=== PATIENT | female | born 1960 | race Two or more races ===

== ENCOUNTER 2025-04-14 04:22 | Emergency (ER) | payer MEDICAID, SELFPAY ==
[2025-04-14 04:22] VITALS: BP 166/72; PULSE 100; RESP 18; TEMP 36.5; O2SAT 96; BMI 44.1
--- NOTE | 2025-04-14 04:25 | EKG_ITS ---
[facility] Test Date: 2025-04-14 Pat Name: EILEEN MORENO Department: Room: - Gender: Female [employer]: : 1960 Requested By: Romain Cheung Order Number: [id number] Reading MD: Romain Cheung Measurements Intervals [place] Rate: 86 P: 20 NC: 160 QRS: -37 QRSD: 70 T: 40 QT: 330 QTc: 396 Interpretive Statements SINUS RHYTHM LOW QRS VOLTAGE IN PRECORDIAL LEADS [QRS DEFLECTION < 1.0 mV IN CHEST LEADS] ANTERIOR MYOCARDIAL INFARCTION , PROBABLY OLD [40+ ms Q WAVE AND/OR ST/T ABNORMALITY IN V3/V4] INFERIOR MYOCARDIAL INFARCTION , PROBABLY OLD [40+ ms Q WAVE AND/OR ST/T ABNORMALITY IN II/aVF] Compared to ECG 08/25/2022 14:14:52 No significant changes /store/S0/[id number]/[id number].pdf
--- NOTE | 2025-04-14 04:55 | XR_ITS ---
Examination: PA chest single view TECHNIQUE: Upright PA chest single view Date and time: April 14, 2025 0505 hours INDICATIONS: Chest pain shortness of breath beginning 2 weeks ago. FINDINGS: Normal heart size. Mild prominence pulmonary vasculature. No pneumonia or pulmonary edema IMPRESSION: Mild prominence pulmonary vasculature
--- NOTE | 2025-04-14 04:55 | PD.EDRME ---
Rapid Medical Screening Exam [facility] Arrival date/time: 04/14/25 04:22 64F with history of HTN, DM and asthma presents to ED with 2 weeks of CP and SOB that got worse today. Patient denies URI symptoms. Chief Complaint: Chest Pain Vital signs: Vital Signs Temperature 97.7 F 04/14/25 04:22 Pulse Rate 100 04/14/25 04:22 Respiratory Rate 18 04/14/25 04:22 Blood Pressure 166/72 H 04/14/25 04:22 Pulse Oximetry (%) 96 04/14/25 04:22 Oxygen Delivery Method Room Air 04/14/25 04:22
[2025-04-14 06:17] LABS: Basophils # (Auto) 0.0 Thou/mm3 (0.0-0.2); Basophils % (Auto) 0 % (0-2.5); Eosinophils # (Auto) 0.2 Thou/mm3 (0.0-0.5); Eosinophils % (Auto) 2 % (0-10); Hematocrit 39.4 % (36.0-46.0); Hemoglobin 12.2 g/dL (12.0-16.0); Immature Granulocytes Auto 0.02 Thou/mm3 (0.00-0.00); Lymphocytes # (Auto) 2.3 Thou/mm3 (1.0-4.8); Lymphocytes % (Auto) 23 % (10-50); Mean Corpuscular HGB Conc 31.0 g/dl (31.0-37.0); Mean Corpuscular Hemoglobin 27.1 pg (25.0-35.0); Mean Corpuscular Volume 87 fL (80-100); Monocytes # (Auto) 0.9 Thou/mm3 (0.0-0.8); Monocytes % (Auto) 9 % (0-12); Neutrophils # (Auto) 6.9 Thou/mm3 (1.8-7.7); Neutrophils % (Auto) 67 % (37-80); Nucleated Red Blood Cell # 0.00 Thou/mm3 (0.00-0.00); Nucleated Red Blood Cell % 0 /100 WBC (0); Platelet Count 258 Thou/mm3 (140-440); RDW Standard Deviation 49.6 fL (36.4-46.3); Red Blood Count 4.51 Miln/mm3 (4.00-5.20); White Blood Count 10.3 Thou/mm3 (3.6-11.0)
[2025-04-14 06:35] LABS: Alanine Aminotransferase 31 U/L (10-49); Albumin, Serum 4.3 gm/dL (3.4-4.8); Albumin/Globulin Ratio 1.5 (1.2-2.2); Alkaline Phosphatase 105 U/L (46-116); Anion Gap 13 (7-16); Aspartate Amino Transferase 23 U/L (0-34); B-Type Natriuretic Peptide < 20 pg/mL (0-100); BUN/Creatinine Ratio 19 Ratio (12-20); Bilirubin,Total 0.4 mg/dL (0.3-1.2); Blood Urea Nitrogen 15 mg/dL (9-23); Calcium 10.2 mg/dL (8.3-10.6); Calcium (Corrected) 10.2 mg/dL (8.5-10.1); Carbon Dioxide 25.1 mMol/L (20.0-31.0); Chloride 102 mMol/L (98-107); Creatinine (Component) 0.8 mg/dL (0.6-1.3); Estimated Creatinine Clearance 90.3 mL/min (>60); Globulin 2.9 gm/dL (2.3-3.5); Glucose 163 mg/dL (74-106); Osmolality,Calculated 284 (275-295); Potassium 4.8 mMol/L (3.4-5.1); Sodium 140 mMol/L (136-145); Total Protein 7.2 gm/dL (5.7-8.2); Troponin I < 0.002 ng/mL (0.0-0.045); eGFR > 60 See Note
[2025-04-14 07:38] LABS: INR 0.9 (0.9-1.3); Partial Thromboplastin Time 26.8 Seconds (22.0-36.0); Prothrombin Time 10.2 Seconds (9.0-12.2)
--- NOTE | 2025-04-14 09:12 | PD.EDCHEST ---
ED Chest Pain RME/HPI General Chief Complaint: Chest Pain Stated Complaint: CHEST PAIN, FEELS SOB X2 WEEKS Arrival date/time: 04/14/25 04:22 RME / HPI RME / HPI narrative: 04/14/25 04:22 64F with history of HTN, DM and asthma presents to ED with 2 weeks of CP and SOB that got worse today. Patient denies URI symptoms. DR. ABDI MAIN ED EVALUATION 64 year old female with history of hypertension, diabetes, asthma presents to the ED for evaluation of chest pain beginning at 02:30 this morning. Described as a tightness burning sensation that is located to the center of chest with radiation to her left shoulder. Accompanied by facial tingling sensation. States she believed her symptoms were due to low sugar and upon checking noted it to be 88. States she took two sips of Pepsi and oatmeal. Patient additionally reports she was started on antibiotics for a UTI and ear infection 5 days ago which she is still taking. Denies fevers, chills, sweats. Related Data Home Medications ?Medication ?Instructions ?Recorded ?Confirmed albuterol sulfate 90 mcg/actuation 2 puff inhalation Q6HR PRN 09/29/15 09/19/21 aerosol inhaler (ProAir HFA) WHEEZING #0 inhalations atorvastatin 20 mg tablet (Lipitor) 20 mg PO HS #0 tabs 09/29/15 09/19/21 furosemide 40 mg tablet (Lasix) 40 mg PO BID #0 tabs 09/29/15 09/19/21 loratadine 10 mg tablet (Claritin) 10 mg PO QDAY #0 tabs 09/29/15 09/19/21 oxybutynin chloride 5 mg tablet 5 mg PO BID #0 tabs 09/29/15 09/19/21 sitagliptin phosphate 100 mg 100 mg PO QDAY #0 tabs 09/29/15 09/19/21 tablet (Januvia) amlodipine 10 mg tablet 10 mg PO QDAY 02/15/20 09/19/21 aspirin 81 mg chewable tablet 81 mg PO QDAY 02/15/20 09/19/21 budesonide-formoterol HFA 160 2 puff inhalation BID 02/15/20 09/19/21 mcg-4.5 mcg/actuation aerosol inhaler (Symbicort) cholecalciferol (vitamin D3) 1,250 50,000 unit PO QWEEK 02/15/20 09/19/21 mcg (50,000 unit) capsule docusate sodium 250 mg capsule 250 mg PO BID 02/15/20 09/19/21 empagliflozin 25 mg tablet 25 mg PO QDAY 02/15/20 09/19/21 (Jardiance) glimepiride 4 mg tablet 4 mg PO BID 02/15/20 09/19/21 hydroxyzine HCl 25 mg tablet 25 mg PO BID PRN Allergy Symptoms 02/15/20 09/19/21 losartan 100 mg tablet (Cozaar) 100 mg PO QDAY 02/15/20 09/19/21 metformin 1,000 mg tablet 1,000 mg PO BID 02/15/20 09/19/21 tiotropium bromide 2.5 2 puff inhalation QDAY 02/15/20 09/19/21 mcg/actuation mist for inhalation (Spiriva Respimat) Previous Rx's ?Medication ?Instructions ?Recorded potassium chloride 20 mEq 40 meq (2 x 20 mEq) PO BID #10 tabs 02/15/20 tablet,extended release ondansetron 4 mg disintegrating 4 mg PO Q8H #30 tabs 05/17/20 tablet albuterol sulfate 90 mcg/actuation 2 puff inhalation QID PRN 09/08/21 aerosol inhaler (ProAir HFA) shortness of breath or wheezing #8.5 grams albuterol sulfate 90 mcg/actuation 2 puff inhalation Q6H PRN 07/02/22 aerosol inhaler (Ventolin HFA) shortness of breath or wheezing #8.5 grams azithromycin 500 mg tablet See Rx Instructions PO .COMPLEX #6 07/02/22 tabs promethazine-DM 6.25 mg-15 mg/5 mL 5 ml PO Q6H PRN cough #473 mL 07/02/22 oral syrup ibuprofen 600 mg tablet 600 mg PO Q6H PRN fever or pain 10/14/22 #30 tabs levalbuterol tartrate 45 2 inh inhalation Q4H PRN shortness 10/14/22 mcg/actuation aerosol inhaler of breath or wheezing #15 grams (Xopenex HFA) promethazine-DM 6.25 mg-15 mg/5 mL 5 ml PO Q6H PRN cough #118 mL 10/14/22 oral syrup Allergies Allergy/AdvReac Type Severity Reaction Status Date / Time cefonicid Allergy Intermediate Rash Verified 09/19/21 13:18 doxycycline Allergy Intermediate Rash Verified 09/19/21 13:18 hydrocodone Allergy Intermediate RASH Verified 09/19/21 13:18 levofloxacin Allergy Intermediate RASH Verified 09/19/21 13:18 sulfamethoxazole (From Allergy Intermediate Rash Verified 09/19/21 13:18 Bactrim) tolterodine (From Detrol) Allergy Intermediate Rash Verified 09/19/21 13:18 trimethoprim (From Bactrim) Allergy Intermediate Rash Verified 09/19/21 13:18 carvedilol Allergy Mild Itching Verified 09/19/21 13:18 ciprofloxacin Allergy Mild SOB Verified 09/19/21 13:18 latex Allergy Mild Nausea Verified 09/19/21 13:18 nitrofurantoin Allergy Mild Itching Verified 09/19/21 13:18 spironolactone Allergy Unknown Rash Verified 09/19/21 13:18 ibuprofen AdvReac Intermediate Abdominal Verified 09/19/21 13:18 Pain Review of Systems Review of Systems Systems Reviewed: All systems reviewed, normal except as documented Past Medical History Past Medical History CARDIAC: Positive Hypercholesterolemia and Hypertension RESPIRATORY: Positive Respiratory Disorders, Asthma and Pneumonia (04/11/25) GASTROINTESTINAL: Positive Gastrointestinal Disorders and Obesity REPRODUCTIVE: Positive Previous Pregnancies MUSCULOSKELETAL: Positive Musculoskeletal Disorders and Arthritis ENT: Positive History of ENT Problems and Ear Infection (L ear) ENDOCRINE: Positive Endocrine Disorders and Diabetes Mellitus Type 2 PSYCHO/SOCIAL: Positive Anxiety Surgical History SURGICAL: Positive Hysterectomy (partial) and Section; Negative Cardiac Surgery or Endocrine Surgery Social History SMOKING STATUS: Never smoker SECOND HAND EXPOSURE: No ED Exam Narrative Physical exam: GENERAL APPEARANCE: alert and oriented x 4, well-developed, obese, no acute distress HEENT: Normocephalic, atraumatic; pupils equal, round, reactive to light; EOMI; mucous membranes pink, moist; oropharynx clear NECK: Supple LUNGS: CTABL; no wheezes, no rales, no rhonchi HEART: Regular rate, regular rhythm; normal S1, S2; no murmurs ABDOMEN: non distended; normal BS; soft, no tenderness, no guarding, no rebound; no masses, no organomegaly, no hernia BACK: no CVA tenderness EXTREMITIES: atraumatic; no edema NEUROLOGIC: awake; alert and oriented x4; cranial nerves II-XII grossly intact; no focal sensory or motor deficits PSYCHIATRIC: appropriate mood and affect SKIN: warm, dry, normal color; no rashes Course Quality Measures none Orders Category Date Time Status Bedside COVID-19 Antigen Test NOW Care 04/14/25 11:48 Completed Bedside Influenza A&B Antigen Test NOW Care 04/14/25 11:48 Completed EKG (ED ONLY) *Do not use* NOW Care 04/14/25 04:25 Completed EKG (ED Only) Stat Exams 04/14/25 04:25 Draft XR chest 1V portable Stat Exams 04/14/25 04:55 Completed B-Type Natriuretic Peptide Stat Lab 04/14/25 05:04 Completed CBC Stat Lab 04/14/25 05:04 Completed Comprehensive Metabolic Panel Stat Lab 04/14/25 05:04 Completed D-Dimer Stat Lab 04/14/25 11:00 Completed Partial Thromboplastin Time Stat Lab 04/14/25 05:04 Completed Prothrombin Time with INR Stat Lab 04/14/25 05:04 Completed Troponin I Stat Lab 04/14/25 05:04 Completed Troponin I Stat Lab 04/14/25 11:00 Completed UA, C/S IF [Urinalysis, C/S if Indicated] Stat Lab 04/14/25 10:25 Completed Vital Signs Vital signs: Vital Signs Temperature 97.7 F 04/14/25 04:22 Pulse Rate 100 04/14/25 04:22 Respiratory Rate 18 04/14/25 04:22 Blood Pressure 166/72 H 04/14/25 04:22 Pulse Oximetry (%) 96 04/14/25 04:22 Oxygen Delivery Method Room Air 04/14/25 04:22 Pulse ox is 96% on room air which is adequate. Chest Pain MDM Narrative MDM Narrative:: Thelma Smith am scribing for and in the presence of Dr. Abdi. Patient data External records reviewed:: [facility] previous records (I reviewed ED visit on 10/14/2022 ) Clinical information provided by:: patient Social determinants that could affect healthcare access:: none Patient has the following chronic illnesses:: hypertension, diabetes, asthma How is presenting disease/condition affected by chronic disease/condition?: exacerbated by Evaluation data The following diagnostics were reviewed and interpreted by me:: lab results, radiology exam(s) and EKG tracing(s) (04/14/2025 @ 04:30 AM. NSR, rate 86, no acute ischemic changes. ) Lab and/or radiology exams considered but not ordered:: None Interpretation Summary: Ordering Physician: Romain Cheung PA-C Date of Service: 04/14/25 Procedure(s): XR chest 1V portable Accession Number(s): [id number] cc: Rambo Al MD; Romain Cheung PA-C; Kassandra Asif PA-C~ Examination: PA chest single view TECHNIQUE: Upright PA chest single view Date and time: April 14, 2025 0505 hours INDICATIONS: Chest pain shortness of breath beginning 2 weeks ago. FINDINGS: Normal heart size. Mild prominence pulmonary vasculature. No pneumonia or pulmonary edema IMPRESSION: Mild prominence pulmonary vasculature Dictated By: Rambo Al MD Signed By: <Electronically signed by Rambo Al MD in OV> 04/14/25 0934 Medications / Prescriptions Medications or Prescriptions considered but not ordered:: None Medication administrations:: See above Consultations Consultation(s) initiated? (list below): No Diagnosis Chest Pain Differential Diagnosis: stable angina, unstable angina pectoris, atypical chest pain, st elevation myocardial infarction, costochondritis, chest pain and biliary colic Most likely diagnosis given after review of the tests above:: Dyspnea Admission Indicated Admission indicated?: not indicated Admission Request Was there a request for admission?: No Disposition Plan Disposition Plan: Discharge Discharge Attestation Discharge Attestation: The patient and all family members were given an opportunity to ask questions and understood the discharge instructions. Discharge instructions specifically effects, indications for sooner follow up or return to the emergency department, and the expected course of current diagnosis. Patient condition: Stable Discharge Plan Plan Patient Disposition: HOME (Self Care) Prescriptions/Referrals Prescriptions/Med Rec: No Action furosemide [Lasix] 40 MG tablet 40 mg PO BID Qty: 0 atorvastatin [Lipitor] 20 MG tablet 20 mg PO HS Qty: 0 albuterol sulfate [ProAir HFA] 8.5 GM HFA aerosol inhaler 2 puff Inhalation Q6HR PRN (Reason: WHEEZING) Qty: 0 oxybutynin chloride 5 MG tablet 5 mg PO BID Qty: 0 loratadine [Claritin] 10 MG tablet 10 mg PO QDAY Qty: 0 Januvia 100 MG tablet 100 mg PO QDAY Qty: 0 metformin 1,000 mg Tablet 1,000 mg PO BID aspirin 81 mg Tablet,Chewable 81 mg PO QDAY losartan [Cozaar] 100 mg Tablet 100 mg PO QDAY budesonide-formoterol [Symbicort] 160-4.5 mcg/actuation Hfa Aerosol Inhaler 2 puff INHALATION BID Spiriva Respimat 2.5 mcg/actuation Mist 2 puff INHALATION QDAY amlodipine 10 mg tablet 10 mg PO QDAY glimepiride 4 mg tablet 4 mg PO BID Patient Comments: TAKE 1 TABLET BY MOUTH TWICE A DAY hydroxyzine HCl 25 mg tablet 25 mg PO BID PRN (Reason: Allergy Symptoms) docusate sodium 250 mg capsule 250 mg PO BID Patient Comments: TAKE ONE CAPSULE BY MOUTH TWICE A DAY cholecalciferol (vitamin D3) 1,250 mcg (50,000 unit) capsule 50,000 unit PO QWEEK Patient Comments: TAKE 1 CAPSULE BY MOUTH WEEKLY Rx Instructions: SATURDAY. Jardiance 25 mg tablet 25 mg PO QDAY potassium chloride 20 mEq tablet extended release 40 meq PO BID Qty: 10 0RF ondansetron 4 mg tablet,disintegrating 4 mg PO Q8H Qty: 30 0RF albuterol sulfate [ProAir HFA] 90 mcg/actuation HFA aerosol inhaler 2 puff inhalation QID PRN (Reason: shortness of breath or wheezing) Qty: 8.5 0RF promethazine-DM 6.25-15 mg/5 mL syrup 5 ml PO Q6H PRN (Reason: cough) Qty: 473 0RF albuterol sulfate [Ventolin HFA] 90 mcg/actuation HFA aerosol inhaler 2 puff inhalation Q6H PRN (Reason: shortness of breath or wheezing) Qty: 8.5 0RF azithromycin 500 mg tablet See Rx Instructions .ROUTE .COMPLEX Qty: 6 0RF Rx Instructions: take 500 mg today (day 1), then 250 mg for 4 days (days 2-5) levalbuterol tartrate [Xopenex HFA] 45 mcg/actuation HFA aerosol inhaler 2 inh inhalation Q4H PRN (Reason: shortness of breath or wheezing) Qty: 15 0RF ibuprofen 600 mg tablet 600 mg PO Q6H PRN (Reason: fever or pain) Qty: 30 0RF promethazine-DM 6.25-15 mg/5 mL syrup 5 ml PO Q6H PRN (Reason: cough) Qty: 118 0RF Referrals: Kassandra Asif PA-C [Primary Care Provider] - In 1 week Problem List Clinical Impression: Dyspnea Patient/Caregiver Discharge Instructions Education Materials: ED Shortness of Breath (Dyspnea) Print Language: Azerbaijani Stand Alone Forms: [employer] Award Info., Patient Portal Info Letter
[2025-04-14 10:42] VITALS: BP 165/68; PULSE 72; RESP 18; TEMP 36.5; O2SAT 95
[2025-04-14 10:47] LABS: Collection Type, Urine Clean Catch
[2025-04-14 11:05] LABS: Bilirubin,Urine Negative (Negative); Blood,Urine Negative (Negative); Clarity,Urine Clear (Clear/Hazy); Color,Urine Lt-Yellow (Lt Yel-Yel); Culture Indicated,Urine Not Indicated; Glucose, Urine Negative (Negative); Ketones,Urine Negative (Negative); Leukocyte Esterase,Urine Positive (Negative); Nitrite,Urine Negative (Negative); PH,Urine 6.0 (5.0-7.0); Protein,Urine Negative (Neg - Trace); RBC,Urine 3 /hpf (0-3); Specific Gravity,Urine 1.016 (1.001-1.035); Squamous Epithelial Cell,Urine 3 /hpf (0-5); Urobilinogen,Urine Negative mg/dL (0.0-1.0); WBC,Urine 5 /hpf (0-5)
[2025-04-14 11:46] LABS: Troponin I < 0.002 ng/mL (0.0-0.045)
[2025-04-14 12:28] LABS: D-Dimer 266 ng/mL (<600)
[2025-04-14 14:00] VITALS: BP 161/72; PULSE 78; RESP 18; TEMP 36.9; O2SAT 99
== END 2025-04-14 14:00 | disposition home or self-care (01) ==
PROVIDERS: Physician Assistant; Emergency Provider Emergency Medicine; PCP Physician Assistant
DX: R06.00 Dyspnea, unspecified (principal); I10 Essential (primary) hypertension; E11.9 Type 2 diabetes mellitus without complications; J45.909 Unspecified asthma, uncomplicated
CPT/HCPCS: 36415; 71045; 80053; 81001; 83880; 84484; 85025; 85379; 85610; 85730; 87400; 87811; 93005; 99283

== ENCOUNTER 2025-05-06 00:50 | Emergency (ER) | payer MEDICAID, SELFPAY ==
[2025-05-06 00:51] VITALS: BMI 44.1
[2025-05-06 01:24] VITALS: BP 145/78; PULSE 88; RESP 20; TEMP 36.7; O2SAT 93
--- NOTE | 2025-05-06 01:48 | XR_ITS ---
Examination: PA lateral chest 2 views Technique: Upright PA lateral chest 2 views Date and time: May 06, 2025, 0150 hrs., Comparison 04/14/2025 Indications: Coughing chest pain with inspiration beginning 4 days ago. Findings: Heart size. Minor prominence pulmonary vasculature. Accentuation basilar bronchovascular markings. Moderate thoracic spondylosis Impression: Basilar bronchitis pattern
--- NOTE | 2025-05-06 01:49 | PD.EDRME ---
Rapid Medical Screening Exam E Arrival date/time: 05/06/25 00:50 64-year-old female with a history of asthma reports with complaints of shortness of breath x 2 days Chief Complaint: Flu Like Symptoms Time Seen by Provider: 05/06/25 01:11 Vital signs: Vital Signs Temperature 98.0 F 05/06/25 01:24 Pulse Rate 88 05/06/25 01:24 Respiratory Rate 20 05/06/25 01:24 Blood Pressure 145/78 H 05/06/25 01:24 Pulse Oximetry (%) 93 L 05/06/25 01:24 Oxygen Delivery Method Room Air 05/06/25 01:24
[2025-05-06 02:19] VITALS: PULSE 77; RESP 20; O2SAT 98
[2025-05-06] MEDS: ALBUTEROL/IPRATROPIUM (Duoneb) RT SOL 3 ML NEBU INH (02:19)
--- NOTE | 2025-05-06 03:06 | EDNOTE_ITS ---
ED SOB =RME/HPI General Chief Complaint: Flu Like Symptoms Stated Complaint: PAIN ON INSPIRATION COUGH Time Seen by Provider: 05/06/25 01:11 Arrival date/time: 05/06/25 00:50 64F with history of HTN, DM and asthma presents to ED with several days of SOB and lung pain. Limitations: no limitations RME / HPI RME / HPI Narrative: 05/06/25 00:50 64-year-old female with a history of asthma reports with complaints of shortness of breath x 2 days Related Data Home Medications ?Medication ?Instructions ?Recorded ?Confirmed albuterol sulfate 90 mcg/actuation 2 puff inhalation Q 6HR PRN 09/29/15 09/19/21 aerosol inhaler (ProAir HFA) WHEEZING #0 inhalations atorvastatin 20 mg tablet (Lipitor) 20 mg PO HS #0 tab s 09/29/15 09/19/21 furosemide 40 mg tablet (Lasix) 40 mg PO BID #0 tabs 0 09/29/15 09/19/21 loratadine 10 mg tablet (Claritin) 10 mg PO QDAY #0 ta bs 09/29/15 09/19/21 oxybutynin chloride 5 mg tablet 5 mg PO BID #0 tabs 09/19/21 sitagliptin phosphate 100 mg 100 mg PO QDAY #0 tabs 09/19/21 tablet (Januvia) amlodipine 10 mg tablet 10 mg PO QDAY 02/15/2009/19 aspirin 81 mg chewable tablet 81 mg PO QDAY 02/15/20 0 09/19/21 budesonide-formoterol HFA 160 2 puff inhalation BID 09/19/21 mcg-4.5 mcg/actuation aerosol inhaler (Symbicort) cholecalciferol (vitamin D3) 1,250 50,000 unit PO QWEE K 02/15/20 09/19/21 mcg (50,000 unit) capsule docusate sodium 250 mg capsule 250 mg PO BID 02/15/20 09/19/21 empagliflozin 25 mg tablet 25 mg PO QDAY 02/15/2004/02 (Jardiance) glimepiride 4 mg tablet 4 mg PO BID 02/15/20 2 hydroxyzine HCl 25 mg tablet 25 mg PO BID PRN Allergy Symptoms 02/15/20 09/19/21 losartan 100 mg tablet (Cozaar) 100 mg PO QDAY 0 09/19/21 metformin 1,000 mg tablet 1,000 mg PO BID 02/15/2004/02 tiotropium bromide 2.5 2 puff inhalation QDAY 02/1409/19/21 mcg/actuation mist for inhalation (Spiriva Respimat) Previous Rx's ?Medication ?Instructions ?Recorded potassium chloride 20 mEq 40 meq (2 x 20 mEq) PO BID # 10 tabs 02/15/20 tablet,extended release ondansetron 4 mg disintegrating 4 mg PO Q8H #30 tabs 1 tablet albuterol sulfate 90 mcg/actuation 2 puff inhalation Q ID PRN 09/08/21 aerosol inhaler (ProAir HFA) shortness of breath or wh eezing #8.5 grams albuterol sulfate 90 mcg/actuation 2 puff inhalation Q 6H PRN 07/02/22 aerosol inhaler (Ventolin HFA) shortness of breath or wheezing #8.5 grams azithromycin 500 mg tablet See Rx Instructions PO .COM PLEX #6 07/02/22 tabs promethazine-DM 6.25 mg-15 mg/5 mL 5 ml PO Q6H PRN cou gh #473 mL 07/02/22 oral syrup ibuprofen 600 mg tablet 600 mg PO Q6H PRN fever or p ain 10/14/22 #30 tabs levalbuterol tartrate 45 2 inh inhalation Q4H PRN yeni rtness 10/14/22 mcg/actuation aerosol inhaler of breath or wheezing #1 5 grams (Xopenex HFA) promethazine-DM 6.25 mg-15 mg/5 mL 5 ml PO Q6H PRN cou gh #118 mL 10/14/22 oral syrup albuterol sulfate 90 mcg/actuation 2 puff inhalation Q 6H PRN 05/06/25 aerosol inhaler (Ventolin HFA) shortness of breath or wheezing #8.5 grams prednisone 20 mg tablet 20 mg PO BID 3 days #6 tabs 05/06/25 Allergies Allergy/AdvReac Type Severity Reaction Status Date / Time cefonicid Allergy Intermediate Rash Verified 05/06/25 00:54 doxycycline Allergy Intermediate Rash Verified 05/06/25 00:54 hydrocodone Allergy Intermediate RASH Verified 05/06/25 00:54 levofloxacin Allergy Intermediate RASH Verified 05/06/25 00:54 sulfamethoxazole (From Allergy Intermediate Rash Verified 05/06/25 00:54 Bactrim) tolterodine (From Detrol) Allergy Intermediate Rash Verified 05/06/25 00:54 trimethoprim (From Bactrim) Allergy Intermediate Rash Verified 05/06/25 00:54 carvedilol Allergy Mild Itching Verified 05/06/25 00:54 ciprofloxacin Allergy Mild SOB Verified 05/06/25 00:54 latex Allergy Mild Nausea Verified 05/06/25 00:54 nitrofurantoin Allergy Mild Itching Verified 05/06/25 00:54 spironolactone Allergy Unknown Rash Verified 05/06/25 00:54 ibuprofen AdvReac Intermediate Abdominal Verified 05/06/25 00:54 Pain Review of Systems Review of Systems Systems Reviewed: All systems reviewed, normal except as documented Cardiovascular Cardiovascular: Reports dyspnea Respiratory Respiratory: Reports as per HPI and Reports dyspnea Past Medical History Past Medical History NEUROLOGIC: Negative Neurological Disorders CARDIAC: Positive Hypercholesterolemia and Hypertension; Negative Cardiac Disorders or Congestive Heart Failure RESPIRATORY: Positive Asthma and Pneumonia (04/11/25); Negative Chronic Obstructive Pulmonary Disease (COPD), Emphysema or Tuberculosis GASTROINTESTINAL: Positive Gastrointestinal Disorders and Obesity GENITOURINARY: Negative Genitourinary Disorders or Renal Disease REPRODUCTIVE: Positive Previous Pregnancies MUSCULOSKELETAL: Positive Musculoskeletal Disorders and Arthritis ENT: Positive Ear Infection (L ear) ENDOCRINE: Positive Endocrine Disorders and Diabetes Mellitus Type 2; Negative Diabetes Mellitus Type 1 HEMATOLOGIC: Negative Blood Disorders or Sickle Cell Disease PSYCHO/SOCIAL: Positive Anxiety OTHER HISTORY: Negative Blood Transfusions, Anesthesia Reactions or Cancer Surgical History SURGICAL: Positive Hysterectomy (partial) and Section; Negative Cardiac Surgery or Endocrine Surgery Social History SMOKING STATUS: Never smoker SECOND HAND EXPOSURE: No ED Exam General Limitations: Present no limitations General appearance: Present alert and in no apparent distress Head Head exam: Present atraumatic Neck Neck exam: Present normal inspection, full ROM and trachea midline Chest Chest inspection: Present normal inspection and symmetric chest wall rise Respiratory Respiratory exam: Present normal lung sounds bilaterally Neurological Exam Neurological exam: Present alert and oriented X3 Psychiatric Psychiatric exam: Present normal affect and normal mood Skin Skin exam: Present warm, dry, intact and normal color Course Quality Measures none Orders Category Date Time Status Bedside COVID-19 Antigen Test NOW Care 05/06/25 03:16 Completed Bedside Influenza A&B Antigen Test NOW Care 05/06/25 03:16 Completed XR chest 2V Stat Exams 05/06/25 01:48 Taken CBC Stat Lab 05/06/25 03:16 Completed CMP [Comprehensive Metabolic Panel] Stat Lab 05/06/25 03:16 Completed D-Dimer Stat Lab 05/06/25 03:16 Completed Troponin I Stat Lab 05/06/25 03:16 Completed Albuterol/Ipratr Rt Rachel [Duoneb Rt Rachel] Med 05/06/25 01:48 Discontinued 3 ml INH X1 ONE predniSONE Med 05/06/25 03:05 Discontinued 40 mg PO X1 ONE Vital Signs Vital signs: Vital Signs Temperature 98.0 F 05/06/25 01:24 Pulse Rate 88 05/06/25 01:24 Respiratory Rate 20 05/06/25 01:24 Blood Pressure 145/78 H 05/06/25 01:24 Pulse Oximetry (%) 93 L 05/06/25 01:24 Oxygen Delivery Method Room Air 05/06/25 01:24 O2 at 93% on RA Shortness of Breath / Dyspnea MDM Narrative MDM Narrative:: 64F with history of HTN, DM and asthma presents to ED with several days of SOB and lung pain. Physical exam reveals no wheezing in lungs. Patient is afebrile, calm, and alert. Patient states breathing tx ordered by E provider did not relieve symptoms. No leukocytosis. CMP unremarkable. Normal trop. Normal D-dimer. Wet CXR unremarkable pending official report. Steroid improved symptoms. Swabs neg. Patient data External records reviewed:: [facility] previous records Clinical information provided by:: patient Social determinants that could affect healthcare access:: none Patient has the following chronic illnesses:: HTN, DM and asthma How is presenting disease/condition affected by chronic disease/condition?: exacerbated by Evaluation data The following diagnostics were reviewed and interpreted by me:: lab results and radiology exam(s) Lab and/or radiology exams considered but not ordered:: ordered Interpretation Summary: above Medications / Prescriptions Medications or Prescriptions considered but not ordered:: ordered Medication administrations:: Medication Administration History Discontinued Medications Albuterol/Ipratropium (Albuterol/Ipratropium (Duoneb) Rt Rachel 3 Ml Nebu) 3 ml INH X1 ONE Stop: 05/06/25 01:49 Last Admin: 05/06/25 02:19 Dose: 3 ml Documented By: PATTI Prednisone (Prednisone 20 Mg Tablet) 40 mg PO X1 ONE Stop: 05/06/25 03:06 Last Admin: 05/06/25 03:40 Dose: 40 mg Documented By: YUDY above Consultations Consultation(s) initiated? (list below): No Diagnosis Shortness of Breath Differential Diagnosis: acute exacerbation of chronic obstructive airways disease, congestive heart failure, community acquired pneumonia, asthma with exacerbation and pulmonary embolism Most likely diagnosis given after review of the tests above:: asthma exacerbation Admission Indicated Admission indicated?: not indicated Admission Request Was there a request for admission?: No Disposition Plan Disposition Plan: Discharge Discharge Attestation Discharge Attestation: The patient and all family members were given an opportunity to ask questions and understood the discharge instructions. Discharge instructions specifically effects, indications for sooner follow up or return to the emergency department, and the expected course of current diagnosis. Patient condition: Stable Discharge Plan Plan Patient Disposition: HOME (Self Care) Prescriptions/Referrals Prescriptions/Med Rec: New prednisone 20 mg tablet 20 mg PO BID 3 Days Qty: 6 0RF albuterol sulfate [Ventolin HFA] 90 mcg/actuation HFA aerosol inhaler 2 puff inhalation Q6H PRN (Reason: shortness of breath or wheezing) Qty: 8.5 0RF No Action furosemide [Lasix] 40 MG tablet 40 mg PO BID Qty: 0 atorvastatin [Lipitor] 20 MG tablet 20 mg PO HS Qty: 0 albuterol sulfate [ProAir HFA] 8.5 GM HFA aerosol inhaler 2 puff Inhalation Q6HR PRN (Reason: WHEEZING) Qty: 0 oxybutynin chloride 5 MG tablet 5 mg PO BID Qty: 0 loratadine [Claritin] 10 MG tablet 10 mg PO QDAY Qty: 0 Januvia 100 MG tablet 100 mg PO QDAY Qty: 0 metformin 1,000 mg Tablet 1,000 mg PO BID aspirin 81 mg Tablet,Chewable 81 mg PO QDAY losartan [Cozaar] 100 mg Tablet 100 mg PO QDAY budesonide-formoterol [Symbicort] 160-4.5 mcg/actuation Hfa Aerosol Inhaler 2 puff INHALATION BID Spiriva Respimat 2.5 mcg/actuation Mist 2 puff INHALATION QDAY amlodipine 10 mg tablet 10 mg PO QDAY glimepiride 4 mg tablet 4 mg PO BID Patient Comments: TAKE 1 TABLET BY MOUTH TWICE A DAY hydroxyzine HCl 25 mg tablet 25 mg PO BID PRN (Reason: Allergy Symptoms) docusate sodium 250 mg capsule 250 mg PO BID Patient Comments: TAKE ONE CAPSULE BY MOUTH TWICE A DAY cholecalciferol (vitamin D3) 1,250 mcg (50,000 unit) capsule 50,000 unit PO QWEEK Patient Comments: TAKE 1 CAPSULE BY MOUTH WEEKLY Rx Instructions: SATURDAY. Jardiance 25 mg tablet 25 mg PO QDAY potassium chloride 20 mEq tablet extended release 40 meq PO BID Qty: 10 0RF ondansetron 4 mg tablet,disintegrating 4 mg PO Q8H Qty: 30 0RF albuterol sulfate [ProAir HFA] 90 mcg/actuation HFA aerosol inhaler 2 puff inhalation QID PRN (Reason: shortness of breath or wheezing) Qty: 8.5 0RF promethazine-DM 6.25-15 mg/5 mL syrup 5 ml PO Q6H PRN (Reason: cough) Qty: 473 0RF albuterol sulfate [Ventolin HFA] 90 mcg/actuation HFA aerosol inhaler 2 puff inhalation Q6H PRN (Reason: shortness of breath or wheezing) Qty: 8.5 0RF azithromycin 500 mg tablet See Rx Instructions .ROUTE .COMPLEX Qty: 6 0RF Rx Instructions: take 500 mg today (day 1), then 250 mg for 4 days (days 2-5) levalbuterol tartrate [Xopenex HFA] 45 mcg/actuation HFA aerosol inhaler 2 inh inhalation Q4H PRN (Reason: shortness of breath or wheezing) Qty: 15 0RF ibuprofen 600 mg tablet 600 mg PO Q6H PRN (Reason: fever or pain) Qty: 30 0RF promethazine-DM 6.25-15 mg/5 mL syrup 5 ml PO Q6H PRN (Reason: cough) Qty: 118 0RF Referrals: Kassandra Asif PA-C [Primary Care Provider, Family Practice] - In 1 week Problem List Clinical Impression: Asthma exacerbation Patient/Caregiver Discharge Instructions Additional Instructions: Please follow-up with PCP within 24-48 hours and return immediately if symptoms worsen. Watch sugars as steroids can increase BS. Print Language: Maltese Stand Alone Forms: Work/School Release, Patient Portal Info Letter PA/SWISS TYPE SCREW MACHINE OPERATOR Supervising Physician PA/SWISS TYPE SCREW MACHINE OPERATOR Supervising Physician: Wyatt
[2025-05-06 03:24] LABS: Basophils # (Auto) 0.1 Thou/mm3 (0.0-0.2); Basophils % (Auto) 1 % (0-2.5); Eosinophils # (Auto) 0.1 Thou/mm3 (0.0-0.5); Eosinophils % (Auto) 1 % (0-10); Hematocrit 38.8 % (36.0-46.0); Hemoglobin 12.3 g/dL (12.0-16.0); Immature Granulocytes Auto 0.03 Thou/mm3 (0.00-0.00); Lymphocytes # (Auto) 2.8 Thou/mm3 (1.0-4.8); Lymphocytes % (Auto) 25 % (10-50); Mean Corpuscular HGB Conc 31.7 g/dl (31.0-37.0); Mean Corpuscular Hemoglobin 27.0 pg (25.0-35.0); Mean Corpuscular Volume 85 fL (80-100); Monocytes # (Auto) 0.8 Thou/mm3 (0.0-0.8); Monocytes % (Auto) 7 % (0-12); Neutrophils # (Auto) 7.2 Thou/mm3 (1.8-7.7); Neutrophils % (Auto) 65 % (37-80); Nucleated Red Blood Cell # 0.00 Thou/mm3 (0.00-0.00); Nucleated Red Blood Cell % 0 /100 WBC (0); Platelet Count 243 Thou/mm3 (140-440); RDW Standard Deviation 48.3 fL (36.4-46.3); Red Blood Count 4.56 Miln/mm3 (4.00-5.20); White Blood Count 11.1 Thou/mm3 (3.6-11.0)
[2025-05-06 03:43] LABS: Alanine Aminotransferase 29 U/L (10-49); Albumin, Serum 4.5 gm/dL (3.4-4.8); Albumin/Globulin Ratio 1.6 (1.2-2.2); Alkaline Phosphatase 95 U/L (46-116); Anion Gap 10 (7-16); Aspartate Amino Transferase 20 U/L (0-34); BUN/Creatinine Ratio 25 Ratio (12-20); Bilirubin,Total 0.5 mg/dL (0.3-1.2); Blood Urea Nitrogen 20 mg/dL (9-23); Calcium 9.7 mg/dL (8.3-10.6); Calcium (Corrected) 9.7 mg/dL (8.5-10.1); Carbon Dioxide 25.6 mMol/L (20.0-31.0); Chloride 105 mMol/L (98-107); Creatinine (Component) 0.8 mg/dL (0.6-1.3); Estimated Creatinine Clearance 90.3 mL/min (>60); Globulin 2.9 gm/dL (2.3-3.5); Glucose 155 mg/dL (74-106); Osmolality,Calculated 286 (275-295); Potassium 4.6 mMol/L (3.4-5.1); Sodium 141 mMol/L (136-145); Total Protein 7.4 gm/dL (5.7-8.2); Troponin I < 0.002 ng/mL (0.0-0.045); eGFR > 60 See Note
[2025-05-06 04:02] LABS: D-Dimer < 250 ng/mL (<600)
== END 2025-05-06 05:00 | disposition home or self-care (01) ==
PROVIDERS: Physician Assistant; Emergency Provider Emergency Medicine; PCP Physician Assistant
DX: J45.901 Unspecified asthma with (acute) exacerbation (principal)
CPT/HCPCS: 36415; 71046; 80053; 84484; 85025; 85379; 87400; 87811; 94640; 99283; A9270; J7512

== ENCOUNTER 2025-07-15 17:52 | Emergency (ER) | payer MEDICAID, SELFPAY ==
[2025-07-15 17:52] VITALS: BMI 44.4
[2025-07-15 17:59] VITALS: BP 189/80; PULSE 88; RESP 20; TEMP 36.6; O2SAT 96
--- NOTE | 2025-07-15 18:06 | PD.EDADULT ---
ED General RME/HPI General Chief complaint: Neuro Symptoms/Deficit Stated complaint: numbness to mouth Time Seen by Provider: 07/15/25 18:04 Arrival date/time: 07/15/25 17:52 CC: Tingling around the mouth HPI onset approximately 130, multiple episodes lasting between 15 and 30 seconds. No other focal deficits denies fever chills chest pain shortness of breath or difficulty breathing. Currently at the time of the exam the symptoms are absent. Related Data Home Medications ?Medication ?Instructions ?Recorded ?Confirmed albuterol sulfate 90 mcg/actuation 2 puff inhalation Q6HR PRN 09/29/15 09/19/21 aerosol inhaler (ProAir HFA) WHEEZING #0 inhalations atorvastatin 20 mg tablet (Lipitor) 20 mg PO HS #0 tabs 09/29/15 09/19/21 furosemide 40 mg tablet (Lasix) 40 mg PO BID #0 tabs 09/29/15 09/19/21 loratadine 10 mg tablet (Claritin) 10 mg PO QDAY #0 tabs 09/29/15 09/19/21 oxybutynin chloride 5 mg tablet 5 mg PO BID #0 tabs 09/29/15 09/19/21 sitagliptin phosphate 100 mg 100 mg PO QDAY #0 tabs 09/29/15 09/19/21 tablet (Januvia) amlodipine 10 mg tablet 10 mg PO QDAY 02/15/20 09/19/21 aspirin 81 mg chewable tablet 81 mg PO QDAY 02/15/20 09/19/21 budesonide-formoterol HFA 160 2 puff inhalation BID 02/15/20 09/19/21 mcg-4.5 mcg/actuation aerosol inhaler (Symbicort) cholecalciferol (vitamin D3) 1,250 50,000 unit PO QWEEK 02/15/20 09/19/21 mcg (50,000 unit) capsule docusate sodium 250 mg capsule 250 mg PO BID 02/15/20 09/19/21 empagliflozin 25 mg tablet 25 mg PO QDAY 02/15/20 09/19/21 (Jardiance) glimepiride 4 mg tablet 4 mg PO BID 02/15/20 09/19/21 hydroxyzine HCl 25 mg tablet 25 mg PO BID PRN Allergy Symptoms 02/15/20 09/19/21 losartan 100 mg tablet (Cozaar) 100 mg PO QDAY 02/15/20 09/19/21 metformin 1,000 mg tablet 1,000 mg PO BID 02/15/20 09/19/21 tiotropium bromide 2.5 2 puff inhalation QDAY 02/15/20 09/19/21 mcg/actuation mist for inhalation (Spiriva Respimat) Previous Rx's ?Medication ?Instructions ?Recorded potassium chloride 20 mEq 40 meq (2 x 20 mEq) PO BID #10 tabs 02/15/20 tablet,extended release ondansetron 4 mg disintegrating 4 mg PO Q8H #30 tabs 05/17/20 tablet albuterol sulfate 90 mcg/actuation 2 puff inhalation QID PRN 09/08/21 aerosol inhaler (ProAir HFA) shortness of breath or wheezing #8.5 grams albuterol sulfate 90 mcg/actuation 2 puff inhalation Q6H PRN 07/02/22 aerosol inhaler (Ventolin HFA) shortness of breath or wheezing #8.5 grams azithromycin 500 mg tablet See Rx Instructions PO .COMPLEX #6 07/02/22 tabs promethazine-DM 6.25 mg-15 mg/5 mL 5 ml PO Q6H PRN cough #473 mL 07/02/22 oral syrup ibuprofen 600 mg tablet 600 mg PO Q6H PRN fever or pain 10/14/22 #30 tabs levalbuterol tartrate 45 2 inh inhalation Q4H PRN shortness 10/14/22 mcg/actuation aerosol inhaler of breath or wheezing #15 grams (Xopenex HFA) promethazine-DM 6.25 mg-15 mg/5 mL 5 ml PO Q6H PRN cough #118 mL 10/14/22 oral syrup albuterol sulfate 90 mcg/actuation 2 puff inhalation Q6H PRN 05/06/25 aerosol inhaler (Ventolin HFA) shortness of breath or wheezing #8.5 grams Allergies Allergy/AdvReac Type Severity Reaction Status Date / Time cefonicid Allergy Intermediate Rash Verified 07/15/25 17:55 doxycycline Allergy Intermediate Rash Verified 07/15/25 17:55 hydrocodone Allergy Intermediate RASH Verified 07/15/25 17:55 levofloxacin Allergy Intermediate RASH Verified 07/15/25 17:55 sulfamethoxazole (From Allergy Intermediate Rash Verified 07/15/25 17:55 Bactrim) tolterodine (From Detrol) Allergy Intermediate Rash Verified 07/15/25 17:55 trimethoprim (From Bactrim) Allergy Intermediate Rash Verified 07/15/25 17:55 carvedilol Allergy Mild Itching Verified 07/15/25 17:55 ciprofloxacin Allergy Mild SOB Verified 07/15/25 17:55 latex Allergy Mild Nausea Verified 07/15/25 17:55 nitrofurantoin Allergy Mild Itching Verified 07/15/25 17:55 spironolactone Allergy Unknown Rash Verified 07/15/25 17:55 ibuprofen AdvReac Intermediate Abdominal Verified 07/15/25 17:55 Pain Review of Systems Review of Systems Narrative Review of Systems: GEN: No fever, no chills, no weight loss EYES: No discharge, no visual changes, no pain HEENT: No ear pain, no congestion, no sore throat PULM: No shortness of breath, no cough, no congestion CV: No chest pain, no dyspnea on exertion, no palpitations GI: No nausea, no vomiting, no diarrhea, no pain, no constipation : No frequency, no urgency, no dysuria MUSC/SKEL: No joint pain, no back pain SKIN: No rash PSYCH: No hallucinations, no depression HEME/LYMPH: No easy bleeding or bruising tendencies NEURO: No weakness, no headache Past Medical History Past Medical History NEUROLOGIC: Negative Neurological Disorders CARDIAC: Positive Hypercholesterolemia and Hypertension; Negative Cardiac Disorders or Congestive Heart Failure RESPIRATORY: Positive Asthma and Pneumonia (04/11/25); Negative Chronic Obstructive Pulmonary Disease (COPD), Emphysema or Tuberculosis GASTROINTESTINAL: Positive Gastrointestinal Disorders and Obesity GENITOURINARY: Negative Genitourinary Disorders or Renal Disease REPRODUCTIVE: Positive Previous Pregnancies MUSCULOSKELETAL: Positive Musculoskeletal Disorders and Arthritis ENT: Positive Ear Infection (L ear) ENDOCRINE: Positive Endocrine Disorders and Diabetes Mellitus Type 2; Negative Diabetes Mellitus Type 1 HEMATOLOGIC: Negative Blood Disorders or Sickle Cell Disease PSYCHO/SOCIAL: Positive Anxiety OTHER HISTORY: Negative Blood Transfusions, Anesthesia Reactions or Cancer Surgical History SURGICAL: Positive Hysterectomy (partial) and Section; Negative Cardiac Surgery or Endocrine Surgery Social History SMOKING STATUS: Never smoker SECOND HAND EXPOSURE: No ED Exam Narrative Physical exam: [General: Morbidly obese not in any acute distress Head normocephalic HEENT: Within acceptable limits Neck is supple nontender Chest equal chest rise nontender to palpation Respiratory: Clear to auscultation no wheezes crackles or rubs CV: Rate rhythm is regular no murmurs rubs or clicks Abdomen is grossly distended secondary to body habitus soft nontender no masses positive bowel sounds all 4 quadrants Back: No CVA tenderness no spinous process tenderness from cervical spine thoracic and lumbar spine Skin: Intact no petechiae rash induration ulceration or crepitus Extremities: Moving all extremity against resistance cap refill less than 2 seconds neurosensory intact Neuro: Awake alert oriented x3 Glascow coma 15 no focal deficits] cranial nerves II through XII are grossly intact. Good word articulation good sentence structure and pronunciation. No word salad. Answering all questions appropriately short medium and long-term memory intact. Course Quality Measures none Orders Category Date Time Status CBC Stat Lab 07/15/25 18:12 Completed CMP [Comprehensive Metabolic Panel] Stat Lab 07/15/25 18:12 Completed Urinalysis Stat Lab 07/15/25 18:25 Completed Vital Signs Vital signs: Vital Signs Temperature 97.9 F 07/15/25 17:59 Pulse Rate 88 07/15/25 17:59 Respiratory Rate 20 07/15/25 17:59 Blood Pressure 189/80 H 07/15/25 17:59 Pulse Oximetry (%) 96 07/15/25 17:59 Oxygen Delivery Method Room Air 07/15/25 17:59 Discharge Plan Plan Patient Disposition: HOME (Self Care) Patient condition on transfer: Stable Prescriptions/Referrals Prescriptions/Med Rec: No Action furosemide [Lasix] 40 MG tablet 40 mg PO BID Qty: 0 atorvastatin [Lipitor] 20 MG tablet 20 mg PO HS Qty: 0 albuterol sulfate [ProAir HFA] 8.5 GM HFA aerosol inhaler 2 puff Inhalation Q6HR PRN (Reason: WHEEZING) Qty: 0 oxybutynin chloride 5 MG tablet 5 mg PO BID Qty: 0 loratadine [Claritin] 10 MG tablet 10 mg PO QDAY Qty: 0 Januvia 100 MG tablet 100 mg PO QDAY Qty: 0 metformin 1,000 mg Tablet 1,000 mg PO BID aspirin 81 mg Tablet,Chewable 81 mg PO QDAY losartan [Cozaar] 100 mg Tablet 100 mg PO QDAY budesonide-formoterol [Symbicort] 160-4.5 mcg/actuation Hfa Aerosol Inhaler 2 puff INHALATION BID Spiriva Respimat 2.5 mcg/actuation Mist 2 puff INHALATION QDAY amlodipine 10 mg tablet 10 mg PO QDAY glimepiride 4 mg tablet 4 mg PO BID Patient Comments: TAKE 1 TABLET BY MOUTH TWICE A DAY hydroxyzine HCl 25 mg tablet 25 mg PO BID PRN (Reason: Allergy Symptoms) docusate sodium 250 mg capsule 250 mg PO BID Patient Comments: TAKE ONE CAPSULE BY MOUTH TWICE A DAY cholecalciferol (vitamin D3) 1,250 mcg (50,000 unit) capsule 50,000 unit PO QWEEK Patient Comments: TAKE 1 CAPSULE BY MOUTH WEEKLY Rx Instructions: SATURDAY. Jardiance 25 mg tablet 25 mg PO QDAY potassium chloride 20 mEq tablet extended release 40 meq PO BID Qty: 10 0RF ondansetron 4 mg tablet,disintegrating 4 mg PO Q8H Qty: 30 0RF albuterol sulfate [ProAir HFA] 90 mcg/actuation HFA aerosol inhaler 2 puff inhalation QID PRN (Reason: shortness of breath or wheezing) Qty: 8.5 0RF promethazine-DM 6.25-15 mg/5 mL syrup 5 ml PO Q6H PRN (Reason: cough) Qty: 473 0RF albuterol sulfate [Ventolin HFA] 90 mcg/actuation HFA aerosol inhaler 2 puff inhalation Q6H PRN (Reason: shortness of breath or wheezing) Qty: 8.5 0RF azithromycin 500 mg tablet See Rx Instructions .ROUTE .COMPLEX Qty: 6 0RF Rx Instructions: take 500 mg today (day 1), then 250 mg for 4 days (days 2-5) levalbuterol tartrate [Xopenex HFA] 45 mcg/actuation HFA aerosol inhaler 2 inh inhalation Q4H PRN (Reason: shortness of breath or wheezing) Qty: 15 0RF ibuprofen 600 mg tablet 600 mg PO Q6H PRN (Reason: fever or pain) Qty: 30 0RF promethazine-DM 6.25-15 mg/5 mL syrup 5 ml PO Q6H PRN (Reason: cough) Qty: 118 0RF albuterol sulfate [Ventolin HFA] 90 mcg/actuation HFA aerosol inhaler 2 puff inhalation Q6H PRN (Reason: shortness of breath or wheezing) Qty: 8.5 0RF Problem List Clinical Impression: Hyperesthesia of special sense Patient/Caregiver Discharge Instructions Print Language: Tamazight Stand Alone Forms: [employer] Award Info., Patient Portal Info Letter, Work/School Release PA/SCHOOL CUSTODIAN Supervising Physician PA/SCHOOL CUSTODIAN Supervising Physician: Edward Alfaro ENP MDM Clinical Information Provided by: patient Medical Records reviewed [facility] Meds/Rx considered, not ordered None Labs/Rad/Tests considered, not ordered None Chronic Illness/Social Conditions Explain: Note: Patient has an extensive list of allergies. Patient has a history of hypertension EKG EKG not done Labs Labs: interpreted by me Lab(s) Interpretation(s): CBC showed no acute leukocytosis anemia thrombocytopenia CMP shows no significant electrolyte imbalances renal impairment transaminitis or T. bili elevation Urine shows 2+ glucose leukocyte esterase positive WBCs 11 squamous epithelial bacteria is rare I suspect this is a contaminated specimen. Imaging Imaging interpretation: interpreted by me Medication Administration(s) none Diagnosis Differential Diagnosis ED Complaint MDM: CVI TIA somatization
[2025-07-15 18:25] LABS: Basophils # (Auto) 0.1 Thou/mm3 (0.0-0.2); Basophils % (Auto) 1 % (0-2.5); Eosinophils # (Auto) 0.2 Thou/mm3 (0.0-0.5); Eosinophils % (Auto) 2 % (0-10); Hematocrit 38.5 % (36.0-46.0); Hemoglobin 12.3 g/dL (12.0-16.0); Immature Granulocytes Auto 0.02 Thou/mm3 (0.00-0.00); Lymphocytes # (Auto) 2.6 Thou/mm3 (1.0-4.8); Lymphocytes % (Auto) 24 % (10-50); Mean Corpuscular HGB Conc 31.9 g/dl (31.0-37.0); Mean Corpuscular Hemoglobin 27.8 pg (25.0-35.0); Mean Corpuscular Volume 87 fL (80-100); Monocytes # (Auto) 0.9 Thou/mm3 (0.0-0.8); Monocytes % (Auto) 8 % (0-12); Neutrophils # (Auto) 7.0 Thou/mm3 (1.8-7.7); Neutrophils % (Auto) 66 % (37-80); Nucleated Red Blood Cell # 0.00 Thou/mm3 (0.00-0.00); Nucleated Red Blood Cell % 0 /100 WBC (0); Platelet Count 296 Thou/mm3 (140-440); RDW Standard Deviation 48.3 fL (36.4-46.3); Red Blood Count 4.42 Miln/mm3 (4.00-5.20); White Blood Count 10.6 Thou/mm3 (3.6-11.0)
[2025-07-15 18:41] LABS: Collection Type, Urine Clean Catch
[2025-07-15 18:42] LABS: Alanine Aminotransferase 22 U/L (10-49); Albumin, Serum 4.7 gm/dL (3.4-4.8); Albumin/Globulin Ratio 1.5 (1.2-2.2); Alkaline Phosphatase 117 U/L (46-116); Anion Gap 10 (7-16); Aspartate Amino Transferase 21 U/L (0-34); BUN/Creatinine Ratio 19 Ratio (12-20); Bilirubin,Total 0.4 mg/dL (0.3-1.2); Blood Urea Nitrogen 17 mg/dL (9-23); Calcium 9.4 mg/dL (8.3-10.6); Calcium (Corrected) 9.4 mg/dL (8.5-10.1); Carbon Dioxide 27.5 mMol/L (20.0-31.0); Chloride 103 mMol/L (98-107); Creatinine (Component) 0.9 mg/dL (0.6-1.3); Estimated Creatinine Clearance 79.6 mL/min (>60); Globulin 3.2 gm/dL (2.3-3.5); Glucose 238 mg/dL (74-106); Osmolality,Calculated 288 (275-295); Potassium 4.8 mMol/L (3.4-5.1); Sodium 140 mMol/L (136-145); Total Protein 7.9 gm/dL (5.7-8.2); eGFR > 60 See Note
[2025-07-15 19:00] LABS: Bacteria,Urine Rare; Bilirubin,Urine Negative (Negative); Blood,Urine Negative (Negative); Clarity,Urine Clear (Clear/Hazy); Color,Urine Yellow (Lt Yel-Yel); Glucose, Urine 2+ (Negative); Ketones,Urine Negative (Negative); Leukocyte Esterase,Urine Positive (Negative); Nitrite,Urine Negative (Negative); PH,Urine 6.5 (5.0-7.0); Protein,Urine Negative (Neg - Trace); RBC,Urine 5 /hpf (0-3); Specific Gravity,Urine 1.021 (1.001-1.035); Squamous Epithelial Cell,Urine 17 /hpf (0-5); Urobilinogen,Urine Negative mg/dL (0.0-1.0); WBC,Urine 11 /hpf (0-5)
== END 2025-07-15 19:56 | disposition home or self-care (01) ==
LOC: SERX 19:35
PROVIDERS: Registered Nurse General Practice; Emergency Provider Emergency Medicine; PCP Physician Assistant
DX: R20.3 Hyperesthesia (principal)
CPT/HCPCS: 36415; 80053; 81001; 85025; 99282